=== PATIENT | male | born 1985 | race Hispanic/Latino ===

== ENCOUNTER 2020-01-27 09:10 | Inpatient (IN) | payer BC ==
[~2020-01-27] VITALS: Ht 188 cm; Wt 118.4 kg
[2020-01-27 09:57] LABS: BASOPHILS % (AUTO) 0.2 % (0.0-5.0); EOSINOPHILS % (AUTO) 0.5 % (0.0-8.0); HEMATOCRIT 42.7 % (42-54); LYMPHOCYTES % (AUTO) 8.7 % (21.0-51.0); MEAN CORPUSCULAR HEMOGLOBIN 29.3 pg (27.0-33.0); MEAN CORPUSCULAR HGB CONC 35.4 g/dL (32.0-36.0); MEAN CORPUSCULAR VOLUME 82.9 fL (79-99); MONOCYTES % (AUTO) 9.5 % (3.0-13.0); NEUTROPHILS % (AUTO) 80.6 % (40.0-77.0); PLATELET COUNT (AUTO) 212 K/uL (130-400); RED BLOOD CELL COUNT(AUTO) 5.15 MIL/uL (4.50-6.20); RED CELL DISTRIBUTION WIDTH 11.9 % (11.0-15.5); WHITE BLOOD COUNT (AUTO) 15.1 K/uL (4.8-10.8)
[2020-01-27 10:05] LABS: CREATININE 0.9 mg/dL (0.5-1.5); POTASSIUM 3.6 mmol/L (3.5-5.1)
[2020-01-27 10:10] LABS: ALBUMIN 3.3 g/dL (3.5-5.0); BILIRUBIN,TOTAL 1.2 mg/dL (0.2-1.0); TOTAL PROTEIN, SERUM 8.3 g/dL (6.0-8.3)
[2020-01-27] MEDS ORDERED: VANCOMYCIN 2.5 GM in SODIUM CHLORIDE 0.9% 500ML 500 ML IV ONE (11:00)
[2020-01-27] MEDS ORDERED: IOHEXOL-350 75 ML VIAL IV ONE (11:39)
[2020-01-27] MEDS: SODIUM CHLORIDE 0.9% 1000ML 1,000 ML IV SCH ×2 (13:09→22:55)
[2020-01-27] MEDS ORDERED: LACTULOSE 20 GM/30 ML UDCUP PO PRN (13:15)
[2020-01-27] MEDS ORDERED: ONDANSETRON HCL 4 MG/2 ML VIAL IV PRN (13:15)
[2020-01-27] MEDS ORDERED: ACETAMINOPHEN 325 MG TAB PO PRN (13:15)
[2020-01-27] MEDS ORDERED: PHARMACY COMMUNICATION MISC SCH (13:30)
[2020-01-27 13:37] LABS: HEMOGLOBIN A1C 10.7 % (4.0-6.0)
[2020-01-27 14:07] LABS: APPEARANCE,URINE Clear (CLEAR); BILIRUBIN,URINE Negative (NEGATIVE); COLOR,URINE Yellow (YELLOW); GLUCOSE, URINE (UA) >=1000 mg/dL (NEGATIVE); KETONES,URINE >=160 mg/dL (NEGATIVE); LEUKOCYTE ESTERASE ,URINE Negative (NEGATIVE); NITRATE,URINE Negative (NEGATIVE); OCCULT BLOOD,URINE Negative (NEGATIVE); PROTEIN,URINE POS 2+ mg/dL (NEGATIVE)
[2020-01-27 14:37] LABS: BACTERIA,URINE Few /HPF (None Seen); MUCUS,URINE Few LPF (None Seen); RBC,URINE 0-1 /HPF (0-1); SQUAMOUS EPITHELIAL CELL,UR Rare /HPF (0-2)
[2020-01-27 14:38] LABS: AMORPHOUS SEDIMENT,UR Few /LPF (None Seen); COARSE GRANULAR CASTS,URINE 0-2 /LPF (None Seen)
[2020-01-27] MEDS: INSULIN HUMULIN R 100 UNIT/ML 3ML SQ SCH ×2 (16:30→21:00)
[2020-01-27] MEDS ORDERED: INSULIN HUMULIN R 100 UNIT/ML 3ML ONE ×2 (17:38→21:12)
[2020-01-27] MEDS: VANCOMYCIN 1.25 GM in SODIUM CHLORIDE 0.9% 250 ML IV SCH ×2 (18:00→22:55)
[2020-01-27] MEDS ORDERED: SODIUM CHLORIDE 0.9% 1000ML 1,000 ML IV ONE (20:17)
[2020-01-27] MEDS ORDERED: ONDANSETRON HCL 4 MG/2 ML VIAL ONE (20:45)
[2020-01-27] MEDS ORDERED: MORPHINE SULFATE 2 MG/ML 1ML SYG ONE (20:46)
[2020-01-27] MEDS ORDERED: ACETAMINOPHEN 325 MG TAB ONE (20:46)
[2020-01-27] MEDS ORDERED: ZOSYN 3.375GM+NS 50ML 50 ML IV SCH (21:00)
[2020-01-27 22:30] VITALS: BP 125/81
[2020-01-27] MEDS: FAMOTIDINE 20MG TAB 20 MG TAB PO SCH (22:53)
[2020-01-27] MEDS: ACETAMINOPHEN 325 MG TAB PO PRN (22:54)
[2020-01-28] MEDS: CLINDAMYCIN 600 MG/D5% WATER 50 ML IV SCH ×2 (00:24→06:05)
[2020-01-28] MEDS: MORPHINE SULFATE 2 MG/ML 1ML SYG IV PRN ×4 (00:25→20:30)
[2020-01-28 03:41] LABS: BASOPHILS % (AUTO) 0.2 % (0.0-5.0); HEMATOCRIT 37.3 % (42-54); LYMPHOCYTES % (AUTO) 12.2 % (21.0-51.0); MEAN CORPUSCULAR HEMOGLOBIN 29.3 pg (27.0-33.0); MEAN CORPUSCULAR HGB CONC 35.1 g/dL (32.0-36.0); MEAN CORPUSCULAR VOLUME 83.4 fL (79-99); NEUTROPHILS % (AUTO) 74.2 % (40.0-77.0); PLATELET COUNT (AUTO) 187 K/uL (130-400); RED BLOOD CELL COUNT(AUTO) 4.47 MIL/uL (4.50-6.20); RED CELL DISTRIBUTION WIDTH 11.9 % (11.0-15.5); WHITE BLOOD COUNT (AUTO) 10.9 K/uL (4.8-10.8)
[2020-01-28 03:56] LABS: CREATININE 0.9 mg/dL (0.5-1.5); POTASSIUM 3.8 mmol/L (3.5-5.1)
[2020-01-28 04:08] VITALS: BP 126/66
[2020-01-28] MEDS: INSULIN HUMULIN R 100 UNIT/ML 3ML SQ SCH ×4 (06:18→20:04)
[2020-01-28 08:30] VITALS: BP 122/68
[2020-01-28] MEDS: FAMOTIDINE 20MG TAB 20 MG TAB PO SCH ×2 (09:44→20:00)
[2020-01-28] MEDS: SODIUM CHLORIDE 0.9% 1000ML 1,000 ML IV SCH ×2 (09:45→19:53)
[2020-01-28] MEDS: ENOXAPARIN SODIUM 40 MG/0.4 ML SYRINGE SQ SCH (09:45)
--- NOTE | 2020-01-28 11:10 | NUR ---
SPOKE WITH DR. KENNEDY REGARDING CONSULT AFTER GIVING HER INFORMATION ON QUESTIONS DR KENNEDY ASKED, DR. KENNEDY SAID IT DID NOT SOUND LIKE AN EMERGENCY AND TO MONITOR IV ANTIBIOTICS INFUSION TREATMENT FIRST. SHE SAID NO ONE WAS COAL SAMPLER AT THIS TIME.
[2020-01-28 11:33] VITALS: BP 123/64
[2020-01-28] MEDS: VANCOMYCIN 1.25 GM in SODIUM CHLORIDE 0.9% 250 ML IV SCH ×2 (12:15→20:00)
[2020-01-28] MEDS ORDERED: COMPOUND IV REFRIGERATED 1 EACH IVSOLN MISC PRN (12:30)
[2020-01-28 16:14] VITALS: BP 128/70
[2020-01-28 20:00] VITALS: BP 125/75
[2020-01-29] VITALS (7 sets, daily range): BP systolic 122–154; BP diastolic 61–93
[2020-01-29] MEDS: VANCOMYCIN 1.25 GM in SODIUM CHLORIDE 0.9% 250 ML IV SCH ×2 (03:33→12:09)
[2020-01-29] MEDS: SODIUM CHLORIDE 0.9% 1000ML 1,000 ML IV SCH (05:03)
--- NOTE | 2020-01-29 05:10 | NUR ---
PT REPORTS THAT HE'S BEEN HAVING FREQUENT NON-PRODUCTIVE DRY COUGH. INFORMED HAYDEN FLOOD WITH AN ORDER OF ROBITUSSIN DM 10ML Q6HRS PRN FOR COUGH.
[2020-01-29] MEDS ORDERED: GUAIFENESIN-DM 200/20 MG 10 ML PO PRN (05:15)
[2020-01-29] MEDS ORDERED: GUAIFENESIN-DM 200/20 MG 10 ML ONE (05:18)
[2020-01-29] MEDS: INSULIN HUMULIN R 100 UNIT/ML 3ML SQ SCH ×4 (06:14→20:10)
[2020-01-29 08:38] LABS: BASOPHILS % (AUTO) 0.1 % (0.0-5.0); EOSINOPHILS % (AUTO) 0.9 % (0.0-8.0); HEMATOCRIT 36.8 % (42-54); LYMPHOCYTES % (AUTO) 11.5 % (21.0-51.0); MEAN CORPUSCULAR HEMOGLOBIN 29.6 pg (27.0-33.0); MEAN CORPUSCULAR HGB CONC 35.6 g/dL (32.0-36.0); MEAN CORPUSCULAR VOLUME 83.3 fL (79-99); MONOCYTES % (AUTO) 9.4 % (3.0-13.0); NEUTROPHILS % (AUTO) 77.7 % (40.0-77.0); PLATELET COUNT (AUTO) 187 K/uL (130-400); RED BLOOD CELL COUNT(AUTO) 4.42 MIL/uL (4.50-6.20); RED CELL DISTRIBUTION WIDTH 11.8 % (11.0-15.5); WHITE BLOOD COUNT (AUTO) 9.2 K/uL (4.8-10.8)
[2020-01-29 08:53] LABS: CREATININE 0.9 mg/dL (0.5-1.5); POTASSIUM 3.5 mmol/L (3.5-5.1)
[2020-01-29] MEDS: FAMOTIDINE 20MG TAB 20 MG TAB PO SCH ×2 (11:46→20:00)
[2020-01-29] MEDS: ENOXAPARIN SODIUM 40 MG/0.4 ML SYRINGE SQ SCH (11:47)
[2020-01-29] MEDS: MORPHINE SULFATE 2 MG/ML 1ML SYG IV PRN ×2 (11:51→20:01)
--- NOTE | 2020-01-29 20:00 | NUR ---
ASSESSMENT / TEACHING PATIENT AWAKE, ALERT , OX3, NO SOB, NO C/O PAIN AT THIS TIME, RIGHT GROIN/INGUINAL AREA WITH REDNESS,INDURATION AND WARM TO TOUCH, EXTENSIVE DISCUSSION REGARDING PLAN OF CARE , PAIN MANAGEMENT, NPO POST MIDNITE, EXPECTED OUTCOME , PATIENT VERBALIZES UNDERSTANDING VIA TEACH BACK
[2020-01-29] MEDS ORDERED: INSULIN GLARGINE 100 UNITS/ML 10 ML VIAL SQ SCH (21:00)
[2020-01-29] MEDS: VANCOMYCIN 1.5 GM in SODIUM CHLORIDE 0.9% 250 ML IV SCH (21:51)
[2020-01-30] MEDS: MORPHINE SULFATE 2 MG/ML 1ML SYG IV PRN ×3 (00:44→22:38)
[2020-01-30 03:36] VITALS: BP 122/75
[2020-01-30] MEDS: VANCOMYCIN 1.5 GM in SODIUM CHLORIDE 0.9% 250 ML IV SCH ×3 (05:25→20:35)
[2020-01-30] MEDS: INSULIN HUMULIN R 100 UNIT/ML 3ML SQ SCH ×4 (06:04→20:45)
[2020-01-30 08:00] VITALS: BP 141/73
[2020-01-30] MEDS: ENOXAPARIN SODIUM 40 MG/0.4 ML SYRINGE SQ SCH (08:26)
[2020-01-30] MEDS: FAMOTIDINE 20MG TAB 20 MG TAB PO SCH ×2 (08:27→20:35)
--- NOTE | 2020-01-30 08:27 | NUR ---
WILL HOLD LOVENOX THIS AM, POSSIBLE I/D OF RT. GROIN ABSCESS.
--- NOTE | 2020-01-30 10:30 | NUR ---
BRENTON ESPARZA WITH DR. SANDERS IN TO SEE PT. ORDERS RECEIVED, WILL GIVE PT BKFT AND DISCUSS WITH DR. SANDERS , LEANING TOWARDS PROBABLY NOT DOING SX UNTIL TOMORROW.
[2020-01-30 11:00] VITALS: BP 128/78
[2020-01-30 16:00] VITALS: BP 127/77
--- NOTE | 2020-01-30 16:00 | NUR ---
RD NOTIFICATION Pt admitted with R-Groin Cellulitis. Tolerating Clear Liquid diet order at this time with no report of GI distress. PO intake at 100%. Elevate BG (235). Obesity Class II. Recommend advance diet as tolerated to 60gm CCD Diabetes Nutrition Education faxed to [phone]), RN notified RD to continue to monitor. Please notify as additional nutrition concerns arise. Thank you. Addendum: 01/30/20 at [address] RD Amended: Links added.
--- NOTE | 2020-01-30 16:02 | NUR ---
NU[employer]UR-Assisted Nutrition Education. Diabetes Nutrition Education faxed to [phone]), RN notified. Addendum: 01/30/20 at [address] RD Amended: Links added.
--- NOTE | 2020-01-30 17:00 | NUR ---
PLAN ON SX FOR TOMORROW. PT. AWARE, WILL NPO AT [place].
--- NOTE | 2020-01-30 18:30 | NUR ---
DCP CM met with pt this morning discussed dc plans. Pt is independent prior to admission, lives at home with spouse, daughter, and mother. Denies any equipments/services. Feels safe to go back home, still drives and works, spouse able to assist with transportation and needs as necessary. DC plan to home once stable. CM to cont to follow up. Addendum: 01/30/20 at 1833 by TERRI ESPARZA LVN CM Amended: Links added.
[2020-01-30] MEDS: INSULIN GLARGINE 100 UNITS/ML 10 ML VIAL SQ SCH (20:41)
[2020-01-30 20:47] VITALS: BP 137/78
[2020-01-31] VITALS (23 sets, daily range): BP systolic 121–148; BP diastolic 66–90
[2020-01-31 05:05] LABS: BASOPHILS % (AUTO) 0.2 % (0.0-5.0); EOSINOPHILS % (AUTO) 1.7 % (0.0-8.0); HEMATOCRIT 38.1 % (42-54); LYMPHOCYTES % (AUTO) 11.3 % (21.0-51.0); MEAN CORPUSCULAR HEMOGLOBIN 28.8 pg (27.0-33.0); MEAN CORPUSCULAR HGB CONC 34.1 g/dL (32.0-36.0); MEAN CORPUSCULAR VOLUME 84.3 fL (79-99); MONOCYTES % (AUTO) 9.6 % (3.0-13.0); NEUTROPHILS % (AUTO) 76.8 % (40.0-77.0); PLATELET COUNT (AUTO) 237 K/uL (130-400); RED BLOOD CELL COUNT(AUTO) 4.52 MIL/uL (4.50-6.20); RED CELL DISTRIBUTION WIDTH 11.7 % (11.0-15.5); WHITE BLOOD COUNT (AUTO) 8.9 K/uL (4.8-10.8)
[2020-01-31 05:43] LABS: ALBUMIN 2.6 g/dL (3.5-5.0); BILIRUBIN,TOTAL 0.5 mg/dL (0.2-1.0); CREATININE 0.8 mg/dL (0.5-1.5); POTASSIUM 3.5 mmol/L (3.5-5.1); TOTAL PROTEIN, SERUM 7.2 g/dL (6.0-8.3)
[2020-01-31] MEDS: INSULIN HUMULIN R 100 UNIT/ML 3ML SQ SCH ×4 (06:40→20:54)
[2020-01-31] MEDS: VANCOMYCIN 1.5 GM in SODIUM CHLORIDE 0.9% 250 ML IV SCH ×3 (06:41→23:41)
[2020-01-31] MEDS: ENOXAPARIN SODIUM 40 MG/0.4 ML SYRINGE SQ SCH (08:12)
--- NOTE | 2020-01-31 10:05 | NUR ---
TRANSFERRED TO OR FOR I AND D OF RIGHT GROIN. AAXO3, NO DISTRESS. IV PATENT.
[2020-01-31] MEDS ORDERED: DEXAMETHASONE SOD PHOSPHATE 10MG/ML 1ML VIAL ONE ×2 (10:47→10:53)
[2020-01-31] MEDS ORDERED: LIDOCAINE PF 2% 5ML ABBOJECT ONE (10:48)
[2020-01-31] MEDS ORDERED: ONDANSETRON HCL 4 MG/2 ML VIAL ONE ×2 (10:48→10:53)
[2020-01-31] MEDS ORDERED: SUCCINYLCHOLINE CHLORIDE 20 MG/ML 10 ML VIAL ONE (10:48)
[2020-01-31] MEDS ORDERED: FENTANYL CITRATE PF 50 MCG/1 ML 2ML VIAL ONE (10:49)
[2020-01-31] MEDS ORDERED: PROPOFOL 10 MG/ML 20ML VIAL IV ONE (10:49)
[2020-01-31] MEDS ORDERED: MIDAZOLAM HCL 1 MG/ML 2ML VIAL ONE (10:49)
[2020-01-31] MEDS ORDERED: GLYCOPYRROLATE 1 MG/5 ML SYRINGE ONE (10:49)
[2020-01-31] MEDS ORDERED: NEOSTIGMINE 5MG/5ML SYR IV ONE (10:49)
[2020-01-31] MEDS ORDERED: ROCURONIUM 10MG/1ML SYR 10 MG/ML ML ONE (10:50)
[2020-01-31] MEDS ORDERED: MEPERIDINE-PF 25 MG/ML SYG ONE ×2 (11:41→11:50)
--- NOTE | 2020-01-31 12:30 | NUR ---
BACK FROM OR AAOX3, MIN BLOOD NOTED TO RIGHT INGUINAL SURGICAL DRESSING. POST OP.
[2020-01-31] MEDS: FAMOTIDINE 20MG TAB 20 MG TAB PO SCH ×2 (12:32→19:42)
[2020-01-31] MEDS: MORPHINE SULFATE 2 MG/ML 1ML SYG IV PRN ×2 (12:54→19:42)
[2020-01-31] MEDS: LEVOFLOXACIN 750 MG TABLET PO SCH (15:39)
[2020-01-31] MEDS: INSULIN GLARGINE 100 UNITS/ML 10 ML VIAL SQ SCH (20:53)
[2020-02-01] VITALS (7 sets, daily range): BP systolic 119–133; BP diastolic 67–81
[2020-02-01] MEDS: MORPHINE SULFATE 2 MG/ML 1ML SYG IV PRN ×3 (00:16→23:05)
[2020-02-01 03:46] LABS: BASOPHILS % (AUTO) 0.1 % (0.0-5.0); EOSINOPHILS % (AUTO) 0.2 % (0.0-8.0); HEMATOCRIT 38.1 % (42-54); LYMPHOCYTES % (AUTO) 8.7 % (21.0-51.0); MEAN CORPUSCULAR HEMOGLOBIN 29.3 pg (27.0-33.0); MEAN CORPUSCULAR HGB CONC 35.2 g/dL (32.0-36.0); MEAN CORPUSCULAR VOLUME 83.2 fL (79-99); MONOCYTES % (AUTO) 5.9 % (3.0-13.0); NEUTROPHILS % (AUTO) 84.7 % (40.0-77.0); PLATELET COUNT (AUTO) 243 K/uL (130-400); RED BLOOD CELL COUNT(AUTO) 4.58 MIL/uL (4.50-6.20); RED CELL DISTRIBUTION WIDTH 11.6 % (11.0-15.5)
[2020-02-01 04:00] LABS: ALBUMIN 2.6 g/dL (3.5-5.0); BILIRUBIN,TOTAL 0.4 mg/dL (0.2-1.0); CREATININE 0.8 mg/dL (0.5-1.5); TOTAL PROTEIN, SERUM 7.4 g/dL (6.0-8.3)
[2020-02-01] MEDS: INSULIN HUMULIN R 100 UNIT/ML 3ML SQ SCH ×4 (06:25→20:24)
[2020-02-01] MEDS: FAMOTIDINE 20MG TAB 20 MG TAB PO SCH ×2 (10:01→20:17)
[2020-02-01] MEDS: ENOXAPARIN SODIUM 40 MG/0.4 ML SYRINGE SQ SCH (10:01)
[2020-02-01] MEDS: VANCOMYCIN 1.5 GM in SODIUM CHLORIDE 0.9% 250 ML IV SCH ×3 (10:01→20:17)
[2020-02-01] MEDS: ACETAMINOPHEN 325 MG TAB PO PRN (10:02)
[2020-02-01] MEDS: LEVOFLOXACIN 750 MG TABLET PO SCH (12:17)
--- NOTE | 2020-02-01 15:52 | NUR ---
dressing changed to right inguinal area ns, 4x4's (wet/dry) abd pad and tape. less swelling and redness noted.
--- NOTE | 2020-02-01 16:00 | NUR ---
PATIENT UPSET HE WAS NOT D/C HOME DR. SANDERS TOLD PATIENT HE WOULD BE DISCHARGE HOME, PER DR. MORA HE NEEDS TO WAIT TILL MONDAY OR TILL CX ARE BACK, SAME WAS TOLD TO THE PATIENT BY DR. HERZOG. PATIENT WAS ASKING FOR ADVICE RE; AMA, PATIENT WAS INSTRUCTED ABOUT THE RISK OF LEAVING AMA THAT INFECTION COULD WORSEN AND PATIENT GOT UPSET. PATIENT THROUGHOUT THE DAY WAS KEPT UP TO DATE ABOUT CARE AND STATUS FOR D/C BUT COMPLAINED TO THAT WE ARE NOT LETTING HIM KNOW NOTHING OF WHATS GOING ON WITH HIS CARE. BOARD WAS FILLED DAILY WITH INFORMATION AND ALSO STATED WE NEVER DID. PT OVERALL WAS UPSET OF DOCTOR NOT COMMUNICATING WELL AND INFORMING HIM THAT HE WAS GOING TO LEAVE FOR LABOR DAY WEEKEND.
[2020-02-01] MEDS ORDERED: INSULIN GLARGINE 100 UNITS/ML 10 ML VIAL SQ SCH (21:00)
[2020-02-02 03:52] VITALS: BP 127/69
[2020-02-02] MEDS: VANCOMYCIN 1.5 GM in SODIUM CHLORIDE 0.9% 250 ML IV SCH ×2 (04:37→13:55)
[2020-02-02 04:43] LABS: BASOPHILS % (AUTO) 0.3 % (0.0-5.0); EOSINOPHILS % (AUTO) 1.6 % (0.0-8.0); HEMATOCRIT 37.7 % (42-54); LYMPHOCYTES % (AUTO) 21.5 % (21.0-51.0); MEAN CORPUSCULAR HEMOGLOBIN 28.7 pg (27.0-33.0); MEAN CORPUSCULAR VOLUME 84.5 fL (79-99); MONOCYTES % (AUTO) 10.3 % (3.0-13.0); NEUTROPHILS % (AUTO) 65.8 % (40.0-77.0); PLATELET COUNT (AUTO) 259 K/uL (130-400); RED BLOOD CELL COUNT(AUTO) 4.46 MIL/uL (4.50-6.20); RED CELL DISTRIBUTION WIDTH 11.7 % (11.0-15.5); WHITE BLOOD COUNT (AUTO) 6.3 K/uL (4.8-10.8)
[2020-02-02 05:01] LABS: ALBUMIN 2.4 g/dL (3.5-5.0); BILIRUBIN,TOTAL 0.3 mg/dL (0.2-1.0); CREATININE 0.9 mg/dL (0.5-1.5); POTASSIUM 3.5 mmol/L (3.5-5.1); TOTAL PROTEIN, SERUM 6.8 g/dL (6.0-8.3)
[2020-02-02] MEDS: INSULIN HUMULIN R 100 UNIT/ML 3ML SQ SCH ×3 (06:33→17:29)
[2020-02-02 08:23] VITALS: BP 143/80
[2020-02-02] MEDS: FAMOTIDINE 20MG TAB 20 MG TAB PO SCH (08:44)
[2020-02-02] MEDS: ENOXAPARIN SODIUM 40 MG/0.4 ML SYRINGE SQ SCH (08:45)
[2020-02-02 11:27] VITALS: BP 128/85
--- NOTE | 2020-02-02 11:40 | NUR ---
DR. MORA HERE AND ASSESS THE WOUND CULTURES RESULTS WITH ANTIBOTICS PRESCRIPTIONS TO BE GIVEN. . APPT FOR ONE WEEK AFTER DISCHARGE . INFORMATION WILL BE GIVEN .
--- NOTE | 2020-02-02 13:30 | NUR ---
DR. SANDERS HERE AND SPOKE WITH PT.REGARDING THE DRSG CHANGE AND FOLLOWUP IN HIS OFFICE IN ONE WEEK WILL ADDRESS THE WOUND CARE DRSG CHANGE AND APPT. PER PT . INFORMATION WILL BE DOING THE DRSG CHANGES AT HOME, STATED THAT HIS HAS DONE THEM BEFORE. . .
[2020-02-02] MEDS: LEVOFLOXACIN 750 MG TABLET PO SCH (13:55)
--- NOTE | 2020-02-02 15:00 | NUR ---
DRSG CHANGE DONE TO HIS RIGHT GROIN SITE, PT HAS GAUZE PACKING INSIDE .X 2 REMOVE AND A APPLICATION OF STERILE GAUZE X 2 PLACED AND DRY ABD DRSG PAD ON TOP AND SECURE WITH MEDIPORE ON. TOLERATE WELL, CLEAN INCISION SITE NOTED RED TISSUE . WITH NO DRAINAGE NOTED . . VERY SM AMT OF BLOOD TO INSIDE GAUZE NOTED .
[2020-02-02 16:21] VITALS: BP 150/54
--- NOTE | 2020-02-02 18:10 | NUR ---
DISCHARGE SUMMARY WAS REVIEW WITH PT REGARDING APPT TO FOLLOWUP AND ANTIBOTICS GIVEN PER DR. MILLER EDUCATION ON DIABETIC TEACHING DONE. SL TO HIS LEFT HAND DC , NOTED NO REDNESS TO SITE, SM DRSG APPLICATION ON .. RT GROIN DRSG IN PLACE . AGAIN .DRSG CHANGES REVIEW. AND WAS COMFORTABLE REGARDING WOUND DRSG CHANGES AT HOME ,,
== END 2020-02-02 17:50 | disposition home or self-care (01) | DRG 854 ==
LOC: EDH 09:10 → EDHIP 13:09 → 3BH 20:40
PROVIDERS: ADMIT Hospitalist; ATTEND Hospitalist
PROC: 0J9C0ZZ Drainage of Pelvic Region Subcutaneous Tissue and Fascia, Open Approach (ICD-10-PCS; principal; 2020-01-31 09:20)
DX: A41.9 Sepsis, unspecified organism (principal); L03.314 Cellulitis of groin; E87.1 Hypo-osmolality and hyponatremia; L02.214 Cutaneous abscess of groin; E11.9 Type 2 diabetes mellitus without complications; F17.290 Nicotine dependence, other tobacco product, uncomplicated; E66.9 Obesity, unspecified; Z20.828 Contact with and (suspected) exposure to other viral communicable diseases; Z83.3 Family history of diabetes mellitus; Z88.0 Allergy status to penicillin; Z68.33 Body mass index [BMI] 33.0-33.9, adult
CPT/HCPCS: 36415; 71045; 74177; 80048; 80053; 80202; 81001; 82948; 83036; 83605; 85025; 87040; 87070; 87076; 87077; 87186; 87205; 87426; 87804; 93005; G0378; J0330; J1100; J1650; J1815; J2001; J2175; J2250; J2405; J2704; J2710; J3010; J3370; J3490; J7030; J7040; J7050; Q9967; U0003